=== PATIENT | male | born 1940 | race Caucasian/White ===

== ENCOUNTER 2024-11-22 09:32 | Emergency (ER) | payer MEDICARE, OTHER ==
[2024-11-22] MEDS ORDERED: FEVERALL 650 MG ONE (09:43)
--- NOTE | 2024-11-22 09:44 | ERPHSYRPT ---
- History of Present Illness Time Seen by Provider: 11/22/24 09:37 Source: patient, EMS Exam Limitations: clinical condition Physician History: 84-year-old male presents from the senior care with decreased responsiveness decreased systolic increased temperature and concern for infection patient was supposed to see urology for a Izaguirre with recent UTI management patient is a full code however has a history of dementia and does not have capacity given his clinical condition at this time patient denies any pain and airway is intact waiting test results Timing/Duration: today Fever Severity: mild Associated Symptoms: No chest pain, No nausea/vomiting, No sore throat Allergies/Adverse Reactions: No Known Drug Allergies Allergy (Verified 10/28/24 19:03) Home Medications: Acetaminophen 325 mg [Tylenol 325 mg] 650 mg PO Q6-8HPRN PRN 10/28/24 [History] Albuterol 2.5 mg/0.5 ml [PROVENTIL Solution 2.5 MG/0.5 ML] 2.5 mg IH QID 10/28/24 [History] Amiodarone HCl 200 mg PO DAILY 10/28/24 [History] Bisacodyl 10 mg [Dulcolax 10 MG SUPP] 1 supp RC DAILY PRN 10/28/24 [History] Docusate Sodium 100 mg PO BID 10/28/24 [History] Ferrous Sulfate 325 mg PO DAILY 10/28/24 [History] Fluconazole 150 mg PO HS 10/28/24 [History] Furosemide 40 mg [Lasix 40 MG] 40 mg PO DAILY 10/28/24 [History] Gabapentin [Neurontin ] 400 mg PO TID 10/28/24 [History] Lisinopril 20 mg [Zestril 20 MG] 20 mg PO DAILY 10/28/24 [History] Loperamide HCl 2 mg [Imodium 2 mg] 2 mg PO Q8H PRN PRN 10/28/24 [History] Loratadine 10 mg [Claritin 10 mg] 10 mg PO DAILY 10/28/24 [History] Magnesium Hydroxide [Dulcolax] 30 ml PO DAILY PRN 10/28/24 [History] Mirtazapine 15 mg PO HS 10/28/24 [History] Tamsulosin HCl [Flomax] 0.4 mg PO HS 10/28/24 [History] Hx Tetanus, Diphtheria Vaccination/Date Given: (unknown) Hx Influenza Vaccination/Date Given: (unknown) Hx Pneumococcal Vaccination/Date Given: (unknown) Travel Risk - Emerging Infectious Disease Are you exhibiting symptoms associated with any current EIDs: No - Review of Systems Constitutional: Fever Eyes: No Symptoms Ears, Nose, & Throat: No Symptoms Respiratory: No Cough, No Dyspnea Cardiac: No Chest Pain, No Edema, No Syncope Abdominal/Gastrointestinal: No Abdominal Pain, No Nausea, No Vomiting, No Diarrhea Genitourinary Symptoms: Dysuria Musculoskeletal: No Back Pain, No Neck Pain Skin: No Rash Neurological: No Dizziness, No Focal Weakness, No Sensory Changes Psychological: No Symptoms Endocrine: No Symptoms All Other Systems: Reviewed and Negative - Past Medical History Pertinent Past Medical History: Yes Neurological History: No Pertinent History ENT History: Cataracts Cardiac History: Arrhythmia, High Cholesterol, Hypertension Respiratory History: No Pertinent History Endocrine Medical History: No Pertinent History Musculoskeletal History: Degenerative Disk Disease, Fractures, Osteoarthritis GI Medical History: No Pertinent History History: Renal Disease Psycho-Social History: Depression Male Reproductive Disorders: No Pertinent History Other Medical History: SX HX: BILATERAL TKR, CARDIAC CATH (NO STENT). REPORTS HX OF COVID X 2 WITH MOST RECENT TIME IN AUGUST 2021 HAD PERSISTENT COUGH AND SOME RESIDUAL SOB WITH EFFORT - Past Surgical History Past Surgical History: Yes Neuro Surgical History: No Pertinent History Cardiac: Cardiac Catheterization Respiratory: No Pertinent History Gastrointestinal: No Pertinent History Genitourinary: No Pertinent History Musculoskeletal: Joint Replacement Male Surgical History: No Pertinent History Other Surgical History: Bilateral knee replacements - Social History Smoking Status: Unknown if ever smoked Drug Use: none - Social Determinants of Health Will the patient participate in the screening: Unable to obtain - Nursing Vital Signs Nursing Vital Signs: Initial Vital Signs Temperature 100.2 F 11/22/24 09:32 Pulse Rate 94 H 11/22/24 09:32 Respiratory Rate 21 11/22/24 09:32 Blood Pressure 97/58 11/22/24 09:32 O2 Sat by Pulse Oximetry 100 11/22/24 09:32 Pain Scale Pain Intensity 0 - Physical Exam General Appearance: alert Eye Exam: PERRL/EOMI ENT Exam: normal ENT inspection, No pharyngeal erythema, No tonsillar exudate Neck Exam: supple, full range of motion, No meningismus Respiratory Exam: normal breath sounds, lungs clear, no respiratory distress Cardiovascular/Chest Exam: normal heart sounds, regular rate/rhythm, No murmur, No edema Gastrointestinal/Abdominal Exam: soft, non tender, no distention Male Genitalia: other (Patient has Izaguirre anchored with bleeding around the penis) Extremity Exam: non-tender, normal range of motion, normal inspection, normal capillary refill Neurologic Exam: alert, oriented x 3, cooperative, electric relay tester II-XII nml as tested, normal mood/affect, sensation nml, No motor deficits Skin Exam: normal color, warm, dry, No rash - Course Nursing assessment & vital signs reviewed: Yes EKG Interpreted by Me: RATE (90), Sinus Rhythm, Non-specific ST Changes, Other (no STEMI) Ordered Tests: Active Orders 24 hr Category Date Time Status Cardiovascular Radiologic Technologist STAT Care 11/22/24 09:38 Active EKG-ER Only STAT Care 11/22/24 09:38 Active IV Insertion STAT Care 11/22/24 09:38 Active POCT Glucose Check STAT Care 11/22/24 09:38 Active Pulse Oximetry (ED) STAT Care 11/22/24 09:38 Active CHEST 1 VIEW (PORTABLE) Stat Exams 11/22/24 09:39 Completed BLOOD CULTURE Stat Lab 11/22/24 10:09 Received CBC W DIFF Stat Lab 11/22/24 10:00 Completed CMP Stat Lab 11/22/24 10:00 Completed CULTURE,URINE Stat Lab 11/22/24 11:02 Ordered Lactic Acid Stat Lab 11/22/24 10:18 Completed Manual Differential NC Stat Lab 11/22/24 10:00 Completed POCT GLUCOSE Stat Lab 11/22/24 10:49 Completed PROCALCITONIN Stat Lab 11/22/24 10:00 Completed PROTIME WITH INR Stat Lab 11/22/24 10:00 Completed PTT Stat Lab 11/22/24 10:00 Completed UA W/RFX UR CULTURE Stat Lab 11/22/24 09:38 Received VENOUS BLOOD GAS Stat Lab 11/22/24 10:18 Completed Medication Summary Generic Name Dose Route Start Last Admin Trade Name Freq PRN Reason Stop Dose Admin Sodium Chloride 1,000 mls @ 999 mls/hr 11/22/24 10:45 11/22/24 10:45 Sodium Chloride 0.9% 1000 Ml IV 11/22/24 13:45 999 mls/hr .Q1H1M ANTHONY Administration Vancomycin HCl 1 gm in 200 mls @ 125 mls/hr 11/22/24 10:32 11/22/24 10:54 Vancomycin 1 Gram/200 Ml Bag IV 11/22/24 12:07 125 mls/hr STAT ONE 125 mls/hr Administration Norepinephrine/Dextrose 8 mg in 250 mls @ 15 mls/hr 11/22/24 10:32 Norepinephrine 8 Mg/250 Ml-D5w IV 12/22/24 10:31 .[id number] PRN HYPOTENSION Protocol 8 MCG/MIN Discontinued Medications Generic Name Dose Route Start Last Admin Trade Name Freq PRN Reason Stop Dose Admin Acetaminophen 975 mg 11/22/24 09:38 11/22/24 09:47 Acetaminophen 650 Mg Supp.Rect OH 11/22/24 09:39 975 mg STAT ONE Administration Acetaminophen Confirm 11/22/24 09:43 Acetaminophen 650 Mg Supp.Rect Administered 11/22/24 09:44 Dose 1,300 mg .ROUTE .STK-MED ONE Sodium Chloride 1,000 mls @ 999 mls/hr 11/22/24 09:38 11/22/24 10:52 Sodium Chloride 0.9% 1000 Ml IV 11/22/24 10:38 Infused .Q1H1M STA Infusion Sodium Chloride Confirm 11/22/24 09:43 Sodium Chloride 0.9% 1000 Ml Administered 11/22/24 09:44 Dose 1,000 mls @ ud .ROUTE .STK-MED ONE Piperacillin Sod/Tazobactam 100 mls @ 200 mls/hr 11/22/24 10:32 11/22/24 10:41 Sod 3.375 gm/ Sodium Chloride IV 11/22/24 11:01 200 mls/hr STAT STA 200 mls/hr Administration Sodium Chloride Confirm 11/22/24 10:40 Sodium Chloride 0.9% Administered 11/22/24 10:41 Dose 100 mls @ ud .ROUTE .STK-MED ONE Vancomycin HCl Confirm 11/22/24 10:53 Vancomycin 1 Gram/200 Ml Bag Administered 11/22/24 10:54 Dose 1 gm in 200 mls @ ud IV .STK-MED ONE Piperacillin Sod/Tazobactam Sod Confirm 11/22/24 10:40 Piperacillin/Tazobactam Sodium 3.375 Gm Vial Administered 11/22/24 10:41 Dose 3.375 gm IV .[facility] ONE Lab/Rad Data: Laboratory Result Diagrams 11/22/24 10:00 11/22/24 10:00 Laboratory Results 11/22/24 11/22/24 11/22/24 Range/Units 10:49 10:18 10:00 WBC (4.23-9.07) x10^3/uL RBC (4.63-6.08) x10^6/uL Hgb (13.7-17.5) g/dL Hct (40.1-51.0) % MCV (79.0-92.2) fL MCH (25.7-32.2) pg MCHC (32.3-36.5) g/dL RDW (11.6-14.4) % Plt Count (163-337) x10^3/uL MPV (9.4-12.4) fL PT (9.4-12.5) SECONDS INR (0.8-3.0) APTT (25.1-36.5) SECONDS pO2/FiO2 Ratio 100.0 % VBG pH 7.37 (7.32-7.42) VBG pCO2 at Pat Temp 40 L (42-55) mm/Hg VBG pO2 at Pat Temp 33 (25-40) mm/Hg VBG HCO3 23.1 (22-28) meq/L VBG O2 Sat (Vandana) 60.9 L (95-100) VBG Base Excess -2.0 (-2.0-2.0) VBG Hemoglobin 8.6 VBG Carboxyhemoglobin 4.5 (0.0-6.9) % T HGB POC Potassium 3.2 L (3.5-5.1) Sodium (135-145) mmol/L Potassium (3.5-5.1) mmol/L Chloride (98-107) mmol/L Carbon Dioxide (22-30) mmol/L Anion Gap (5-15) MEQ/L BUN (9-20) mg/dL Creatinine (0.66-1.25) mg/dL Estimated GFR ML/MIN Glucose (74-106) mg/dL POC Glucometer 107 H (74 to 106) mg/dL Lactic Acid 2.7 H (0.4-2.0) Calcium (8.4-10.2) mg/dL Total Bilirubin (0.2-1.3) mg/dL AST (17-59) U/L ALT (0-50) U/L Alkaline Phosphatase (38-126) U/L Serum Total Protein (6.3-8.2) g/dL Albumin (3.5-5.0) g/dL Procalcitonin 19.300 H* (0.030-0.080) ng/mL 11/22/24 11/22/24 11/22/24 Range/Units 10:00 10:00 10:00 WBC 31.3 H* (4.23-9.07) x10^3/uL RBC 2.43 L (4.63-6.08) x10^6/uL Hgb 8.0 L (13.7-17.5) g/dL Hct 26.0 L (40.1-51.0) % MCV 107.0 H (79.0-92.2) fL MCH 32.9 H (25.7-32.2) pg MCHC 30.8 L (32.3-36.5) g/dL RDW 21.8 H (11.6-14.4) % Plt Count 357 H (163-337) x10^3/uL MPV 10.1 (9.4-12.4) fL PT 12.0 (9.4-12.5) SECONDS INR 1.11 (0.8-3.0) APTT 27.5 (25.1-36.5) SECONDS pO2/FiO2 Ratio % VBG pH (7.32-7.42) VBG pCO2 at Pat Temp (42-55) mm/Hg VBG pO2 at Pat Temp (25-40) mm/Hg VBG HCO3 (22-28) meq/L VBG O2 Sat (Vandana) (95-100) VBG Base Excess (-2.0-2.0) VBG Hemoglobin VBG Carboxyhemoglobin (0.0-6.9) % T HGB POC Potassium (3.5-5.1) Sodium 140 (135-145) mmol/L Potassium 3.1 L (3.5-5.1) mmol/L Chloride 106 (98-107) mmol/L Carbon Dioxide 23 (22-30) mmol/L Anion Gap 14.0 (5-15) MEQ/L BUN 38 H (9-20) mg/dL Creatinine 1.41 H (0.66-1.25) mg/dL Estimated GFR 48.5 ML/MIN Glucose 115 H (74-106) mg/dL POC Glucometer (74 to 106) mg/dL Lactic Acid (0.4-2.0) Calcium 7.9 L (8.4-10.2) mg/dL Total Bilirubin 0.40 (0.2-1.3) mg/dL AST 24 (17-59) U/L ALT 21 (0-50) U/L Alkaline Phosphatase 62 (38-126) U/L Serum Total Protein 5.7 L (6.3-8.2) g/dL Albumin 2.7 L (3.5-5.0) g/dL Procalcitonin (0.030-0.080) ng/mL - Progress Progress Note: We removed the Izaguirre and placed a temperature sensing Izaguirre patient does have some bleeding at the penis site however placed pressure dressing will continue to monitor previous cultures have shown patient has E. coli as well as Proteus which has been sensitive to Zosyn patient has been given 500 cc of fluid by EMS I have ordered another liter will continue to monitor for lactic acid we will provide some antipyretic via rectal tylenol 11/22/24 10:08 11/22/24 11:07 Patient will need to be transferred to [place] as his urologist is there for urosepsis patient has elevated white count elevated Pro-Carmelo PICC line which could be the source we have ordered blood cultures patient's been accepted to Dr. Blankenship service to ICU. The patient on Vanco and Zosyn ordered IV fluids if the pressures remain low open patient restarted on Levophed - Departure Departure Disposition: Transfer Clinical Impression: Sepsis Qualifiers: Sepsis type: sepsis due to unspecified organism Sepsis acute organ dysfunction status: unspecified Qualified Code(s): A41.9 - Sepsis, unspecified organism Condition: Fair Critical Care Time: Yes Critical Care Time(excluding separately billable procedures): Critical 30-74 mins Referrals: ELIDA FELIZ MD [Primary Care Provider, [facility]] - Follow up/PCP as directed
[2024-11-22] MEDS: FEVERALL 650 MG PR ONE (09:47)
[2024-11-22 09:55] VITALS: O2SAT 100
--- NOTE | 2024-11-22 10:17 | XRAY ---
Indication: Fever. Comparison: October 28, 2024 Portable chest partially rotated with new mild right base infiltrate/atelectasis/effusion. Left lung clear. Heart now borderline enlarged with new right arm PICC line. Bony thorax intact again with osteopenia and degenerative changes.
[2024-11-22 10:24] LABS: Hematocrit 26.0 % (40.1-51.0); Hemoglobin 8.0 g/dL (13.7-17.5); Mean Corpuscular Hemoglobin 32.9 pg (25.7-32.2); Mean Corpuscular Hgb Concent. 30.8 g/dL (32.3-36.5); Platelet Count 357 x10^3/uL (163-337); Red Blood Count 2.43 x10^6/uL (4.63-6.08)
[2024-11-22 10:27] LABS: VBG BASE EXCESS -2.0 (-2.0-2.0); VBG CARBOXYHEMOGLOBIN 4.5 % T HGB (0.0-6.9); VBG FIO2 100.0 %; VBG HCO3- 23.1 meq/L (22-28); VBG HEMOGLOBIN 8.6; VBG O2 SATURATION 60.9 (95-100); VBG PCO2 40.0 mm/Hg (42-55); VBG PO2 33.0 mm/Hg (25-40); VBG POTASSIUM 3.2 (3.5-5.1)
[2024-11-22 10:33] LABS: White Blood Count 31.3 x10^3/uL (4.23-9.07)
[2024-11-22 10:37] LABS: INR 1.11 (0.8-3.0); PROTIME 12.0 SECONDS (9.4-12.5); PTT 27.5 SECONDS (25.1-36.5)
[2024-11-22] MEDS ORDERED: PIPERACILLIN/TAZOBACTAM IV ONE (10:40)
[2024-11-22 10:45] LABS: Calcium 7.9 mg/dL (8.4-10.2); Carbon Dioxide 23.0 mmol/L (22-30); Creatinine 1 1.41 mg/dL (0.66-1.25); EST GLOMERULAR FILTRATION RATE 48.5 ML/MIN; Glucose 115.0 mg/dL (74-106); Potassium 3.1 mmol/L (3.5-5.1); SGOT/AST 24.0 U/L (17-59); SGPT/ALT 21.0 U/L (0-50); Total Protein 5.7 g/dL (6.3-8.2)
[2024-11-22] MEDS ORDERED: VANCOMYCIN 1 GRAM/200 ML BAG 1 GM/200 ML PIGGYBACK IV ONE (10:53)
[2024-11-22] MEDS: VANCOMYCIN 1 GRAM/200 ML BAG 1 GM/200 ML PIGGYBACK IV ONE (10:54)
[2024-11-22 11:17] LABS: Glucose, Urine Negative (Negative); Protein,Urine Dip 300 (Negative); RBC >100 /HPF (0-5); WBC >100 /HPF (0-5)
[2024-11-22 11:25] LABS: BAND 17 % (0.0-2.0); Total Cells Counted 100
[2024-11-22 11:29] VITALS: TEMP 99.7
[2024-11-22] MEDS ORDERED: NOREPINEPHRINE 8 MG/250 ML-D5W 8 MG/250 ML PLAST..BAG IV ONE (11:40)
[2024-11-22] MEDS: NOREPINEPHRINE 8 MG/250 ML-D5W 8 MG/250 ML PLAST..BAG IV PRN (11:41)
[2024-11-22 13:06] VITALS: BP 103/58; PULSE 70; RESP 20
== END 2024-11-22 12:50 | disposition short-term general hospital (02) ==
LOC: ED 09:32
DX: A41.9 Sepsis, unspecified organism (principal); R50.9 Fever, unspecified; I10 Essential (primary) hypertension; Z79.899 Other long term (current) drug therapy